=== PATIENT | male | born 1990 | race African-American/Black ===

== ENCOUNTER 2017-11-14 13:37 | Emergency (ER) | payer OTHER ==
[2017-11-14] MEDS ORDERED: cefTRIAXone\\ROCEPHIN 250 MG VIAL ONE (13:58)
[2017-11-14] MEDS ORDERED: Lidocaine 1% PF 5 ML VIAL ONE (13:58)
[2017-11-14] MEDS ORDERED: Azithromycin 250 MG TAB ONE (13:58)
[2017-11-16 01:40] LABS: Chlamydia by PCR Not Detected (NotDetected); GC by PCR Not Detected (NotDetected)
== END 2017-11-14 14:07 | disposition home or self-care (01) ==
LOC: SCSER 13:37
DX: Z20.2 Contact with and (suspected) exposure to infections with a predominantly sexual mode of transmission (principal)
CPT/HCPCS: 87491; 87591; 96372; J0696; J2001

== ENCOUNTER 2017-12-31 12:07 | Emergency (ER) | payer OTHER ==
[2017-12-31 12:55] LABS: #Basophils 0.1 thou/uL (0.0-0.2); #Eosinphils 0.2 thou/uL (0.0-0.7); #Lymphocytes 2.8 thou/uL (1.20-3.40); #Monocytes 0.6 thou/uL (0.11-0.59); #Neutrophils 4.3 thou/uL (1.40-6.50); %Basophils 1.8 % (0.0-1.0); %Eosinophils 2.8 % (0.0-10.0); %Lymphocytes 34.9 % (21.0-51.0); %Monocytes 7.7 % (0.0-10.0); %Neutrophils 52.8 % (42.0-75.0); Hemoglobin 15.1 g/dL (14.0-18.0); Mean Corpuscular HGB CONC 34.1 g/dL (32.0-36.0); Mean Corpuscular Hemoglobin 30.3 pg (27.0-31.0); Mean Corpuscular Volume 88.8 fl (80.0-94.0); Mean Platelet Volume 5.6 fL (7.4-10.4); Platelet Count 377 thou/uL (130-400); RBC Distribution Width 12.2 % (11.5-14.5); White Blood Cell (WBC) Count 8.1 thou/uL (4.8-10.8)
[2017-12-31 13:02] LABS: ALT (SGPT) 33 U/L (8-55); AST (SGOT) 24 U/L (5-34); Albumin 4.5 g/dL (3.5-5.0); Alkaline Phosphatase 99 U/L (40-150); Anion Gap 13 mmol/L (10-20); BUN (Urea Nitrogen) 11 mg/dL (8.9-20.6); Bilirubin, Total 0.4 mg/dL (0.2-1.2); Calc. Creatinine Clearance 0 mL/min (70-130); Calcium 9.5 mg/dL (7.8-10.44); Carbon Dioxide 23 mmol/L (22-29); Chloride 105 mmol/L (98-107); Estimated GFR-MDRD Greater than 90; Glucose 115 mg/dL (70-105); Potassium 3.9 mmol/L (3.5-5.1); Protein, Total 7.5 g/dL (6.0-8.3); Sodium 137 mmol/L (136-145)
[2017-12-31 13:03] LABS: CKMB 1.3 ng/mL (0-6.6); Troponin I Less than 0.010 ng/mL (< 0.028)
== END 2017-12-31 14:31 | disposition home or self-care (01) ==
LOC: SCSER 12:07
DX: R42 Dizziness and giddiness (principal); F41.9 Anxiety disorder, unspecified; F32.9 Major depressive disorder, single episode, unspecified
CPT/HCPCS: 36415; 80053; 82553; 84484; 85025; 93005

== ENCOUNTER 2018-03-03 12:22 | Emergency (ER) | payer OTHER ==
[~2018-03-03 12:22] MED LIST: Iopamidol 370 76% 100 ML VIAL ONE
[2018-03-03 12:42] LABS: Bilirubin Negative (Negative); Blood, Urine Trace (Negative); Clarity Clear (Clear); Glucose, Urine (Dipstick) Negative (Negative); Leukocyte Negative (Negative); Nitrite Negative (Negative); Protein, Urine (Dipstick) Negative (Neg-Trace); Urobilinogen 0.2 mg/dL (0.2-1.0); pH, Urine 6.5 (5.0-9.0)
[2018-03-03 12:50] LABS: Bacteria/HPF Rare-Few HPF (None Seen); RBC/HPF 0-3 HPF (0-3); Squamous Epithelial None Seen HPF (0-3); WBC/HPF None Seen HPF (0-3)
[2018-03-03] MEDS ORDERED: Acetaminophen 500 MG TAB ONE (12:50)
[2018-03-03] MEDS ORDERED: Dexamethasone 10 MG/ML VIAL ONE (13:00)
[2018-03-03] MEDS ORDERED: Ketorolac Tromethamine 30 MG/ML VIAL ONE (13:00)
[2018-03-03 13:14] LABS: #Basophils 0.2 thou/uL (0.0-0.2); #Lymphocytes 1.7 thou/uL (1.20-3.40); #Monocytes 1.1 thou/uL (0.11-0.59); #Neutrophils 10.1 thou/uL (1.40-6.50); %Basophils 1.4 % (0.0-1.0); %Eosinophils 0.3 % (0.0-10.0); %Monocytes 8.6 % (0.0-10.0); %Neutrophils 76.8 % (42.0-75.0); Hemoglobin 14.9 g/dL (14.0-18.0); Mean Corpuscular HGB CONC 35.5 g/dL (32.0-36.0); Mean Corpuscular Hemoglobin 30.9 pg (27.0-31.0); Mean Corpuscular Volume 87.3 fl (80.0-94.0); Mean Platelet Volume 6.9 fL (7.4-10.4); Platelet Count 190 thou/uL (130-400); White Blood Cell (WBC) Count 13.2 thou/uL (4.8-10.8)
[2018-03-03 13:29] LABS: Anion Gap 14 mmol/L (10-20); BUN (Urea Nitrogen) 10 mg/dL (8.9-20.6); Calc. Creatinine Clearance 0 mL/min (70-130); Carbon Dioxide 21 mmol/L (22-29); Chloride 105 mmol/L (98-107); Estimated GFR-MDRD Greater than 90; Glucose 110 mg/dL (70-105); Potassium 4.1 mmol/L (3.5-5.1); Sodium 136 mmol/L (136-145)
[2018-03-03] MEDS ORDERED: Clindamycin/D5W 900 mg/50 ml Premix Bag ONE (13:33)
--- NOTE | 2018-03-03 15:04 | CT ---
CT NECK WITH CONTRAST: Date: 03/03/18 HISTORY: 27-year-old male with sore throat. Evaluate for tonsillar abscess. FINDINGS: There is diffuse enlargement of the adenoids, and bilateral palatine tonsils, which contact each othe r at midline because of the enlargement (kissing tonsils), resulting in narrowing of the oropharyngea l airway. The lingual tonsil is not significantly enlarged. There is no evidence of tonsillar, perito nsillar, or retropharyngeal abscess. There are multiple enlarged bilateral Level II reactive lymph no carlos. There are multiple mildly enlarged Level III and Level V lymph nodes. 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 Trachea is patent and clear. IMPRESSION: 1. Bilateral tonsillitis and adenoiditis. 2. No evidence of abscess. 3. Reactive cervical lymphadenopathy. POS: [facility]
== END 2018-03-03 14:47 | disposition home or self-care (01) ==
LOC: SCSER 12:22
DX: J03.90 Acute tonsillitis, unspecified (principal); M79.1 Myalgia; F41.9 Anxiety disorder, unspecified; F32.9 Major depressive disorder, single episode, unspecified; F17.210 Nicotine dependence, cigarettes, uncomplicated
CPT/HCPCS: 70492; 80048; 81003; 81015; 85025; 96361; 96365; 96375; J1100; J1885; J3490

== ENCOUNTER 2018-03-10 11:59 | Emergency (ER) | payer OTHER ==
--- NOTE | 2018-03-10 13:15 | RAD ---
THREE VIEWS OF THE RIGHT FOOT: DATE: 03/10/18. COMPARISON: None. HISTORY: Inability to bear weight secondary to pain. FINDINGS: No fracture or evidence of dislocation is seen. There is no radiopaque foreign body or subcutaneous gas appreciated. IMPRESSION: No acute osseous abnormality. POS: [facility]
== END 2018-03-10 13:07 | disposition home or self-care (01) ==
LOC: SCSER 11:59
DX: L03.115 Cellulitis of right lower limb (principal); F41.9 Anxiety disorder, unspecified; F32.9 Major depressive disorder, single episode, unspecified; F17.210 Nicotine dependence, cigarettes, uncomplicated; Z71.6 Tobacco abuse counseling
CPT/HCPCS: 99406

== ENCOUNTER 2018-09-08 18:36 | Emergency (ER) | payer OTHER ==
[2018-09-08] MEDS ORDERED: Bicillin LA 1.2 MILLION UNITS/2 ML SYRINGE ONE (19:19)
== END 2018-09-08 20:40 | disposition home or self-care (01) ==
LOC: SCSER 18:36
DX: J02.0 Streptococcal pharyngitis (principal); F41.9 Anxiety disorder, unspecified; F32.9 Major depressive disorder, single episode, unspecified; F17.210 Nicotine dependence, cigarettes, uncomplicated; Z79.899 Other long term (current) drug therapy
CPT/HCPCS: 87430; 96372; J0561